=== PATIENT | male | born 2000 | race Caucasian/White ===

== ENCOUNTER 2022-09-08 16:35 | Emergency (ER) | payer OTHER, SELFPAY ==
[2022-09-08] VITALS (30 sets, daily range): BP systolic 97–122; BP diastolic 49–86; PULSE 104–160; RESP 12–21; TEMP 36.8–38.2; O2SAT 97–100
--- NOTE | 2022-09-08 17:16 | PC.NURSE ---
THIS RN CALLED [facility] TO VERIFY PT STATUS. PER MONICA RN, PT WAS TO BE IN THE ER FOR FURTHER EVALUATION, DR JOHN DOES NOT HAVE ADMITTING PRIVILEGES AT THIS FACILITY, AND HE DID NOT NOTIFY HOSPITALIST. STAFF IS TO FAX OVER LAB RESULTS. COVID AND FLU TESTS WERE RAPID TESTS, BOTH NEGATIVE. PT REPORTS HE STILL HAS NAUSEA, HOWEVER NO EMESIS POST MEDICATION. PT DENIES ANY PAIN OR DIARRHEA.
--- NOTE | 2022-09-08 17:16 | ED.GENADULT ---
HPI - General Adult General Chief complaint: Nausea/Vomiting/Diarrhea Stated complaint: vomitting Time Seen by Provider: 09/08/22 17:07 History of Present Illness HPI narrative: The patient is a 22-year-old male who has had symptoms of nausea and vomiting since 4:30 a.m. today. He has had approximately 8 episodes. No symptoms yesterday. He went to his primary care provider's office and had a systolic blood pressure in the 80s. He was referred to a clinic for IV hydration. He received 2 ODT Zofran tablets and 1 L of intravenous hydration. He was checked for COVID 19 and influenza both were negative. Blood was sent but is not available for review at present. He went back to his primary care provider's office. Blood pressure was 82/62 with a pulse in the 110-120s. He was referred here for further management. The patient still has nausea pre but no vomiting since receiving the Zofran ODT. No abdominal pain. No dizziness. No diarrhea. No URI symptoms. Related Data Home Medications Medication Instructions Recorded Confirmed loratadine 10 mg tablet (Claritin) 10 mg PO DAILY 09/08/22 09/08/22 montelukast 10 mg tablet 10 mg PO DAILY 09/08/22 09/08/22 (Singulair) Allergies Allergy/AdvReac Type Severity Reaction Status Date / Time No Known Allergies Allergy Verified 09/08/22 16:51 Review of Systems Review of Systems: All systems reviewed & are unremarkable except as noted in HPI and below Constitutional: Constitutional: Reports no additional constitutional complaints, Denies anorexia, Denies body ache(s), Denies chills, Denies excessive sweating, Denies fatigue, Denies fever(s), Denies frequent falls, Denies headache(s), Denies malaise and Denies poor appetite Eyes: Eyes: Reports no additional eye complaints, Denies blurry vision, Denies change in vision, Denies irritation, Denies itchy eyes and Denies photophobia ENT: Reports system reviewed and no additional complaints, except as documented, Reports Normal hearing present, Denies change in voice, Denies dysphagia, Denies vertigo, Denies dizziness, Denies ear discharge, Denies headache(s), Denies hearing loss, Denies hoarseness, Denies nasal congestion, Denies neck pain, Denies sinus pressure, Denies sore throat and Denies throat swelling Cardiovascular: Cardiovascular: Reports no additional cardiovascular complaints, Denies chest pain, Denies syncope, Denies rapid heart rate, Denies irregular heart rhythm, Denies leg edema, Denies dyspnea and Denies slow heart rate Respiratory: Respiratory: Reports no additional respiratory complaints, Denies cough, Denies dyspnea, Denies stridor and Denies wheezing Gastrointestinal: Gastrointestinal: Reports no additional gastrointestinal complaints, Denies abdominal pain, Denies melena, Denies hematochezia, Denies dysphagia, Denies diarrhea, Reports nausea and Reports vomiting Genitourinary: Genitourinary: Denies hematuria, Denies oliguria, Denies dysuria, Denies flank pain, Denies urinary frequency and Denies urinary urgency Musculoskeletal: Musculoskeletal: Reports no additional musculoskeletal complaints, Denies abnormal gait, Denies back pain, Denies myalgias, Denies arthralgias, Denies joint swelling, Denies limited range of motion, Denies muscle cramps, Denies muscle weakness, Denies neck pain and Denies numbness Integumentary/Breasts: Skin/Breast: Reports system reviewed and no additional complaints, except as docu, Denies breast pain, Denies change in pigmentation, Denies pruritus, Denies erythema and Denies wounds Neurologic: Reports system reviewed and no additional complaints, except as documented, Reports Normal hearing present, Denies Abnormal speech present, Denies abnormal gait, Denies confusion, Denies vertigo, Denies dizziness, Denies syncope, Denies frequent falls, Denies headache(s), Denies focal weakness, Denies numbness and Denies paresthesias Psychiatric: Psychiatric: Reports no additional psychiatric complaints and Denie
[2022-09-08 17:39] LABS: Basophils Absolute Auto 0.02 K/mm3 (0.00-0.10); Basophils Percent Auto 0.4 % (0.0-1.0); Eosinophils Absolute Auto 0.01 K/mm3 (0.02-0.50); Eosinophils Percent Auto 0.2 % (1.0-6.0); Hematocrit 44.4 % (40.0-54.0); Hemoglobin 14.8 g/dL (14.0-18.0); Immature Granulocyte Absolute 0.02 K/mm3 (0.00-0.00); Immature Granulocyte Percent A 0.4 % (0.0-0.0); Immature Platelet Fraction Pct 1.8 % (1.0-7.0); Lymphocytes Absolute Auto 0.16 K/mm3 (1.10-4.50); Lymphocytes Percent Auto 3.1 % (18.0-42.0); Mean Corpuscular HGB Conc 33.3 g/dL (32.0-36.0); Mean Corpuscular Hemoglobin 29.5 pg (27.0-31.0); Mean Corpuscular Volume 88.4 fL (78.0-102.0); Mean Platelet Volume 10.3 fl (8.7-11.0); Monocytes Absolute Auto 0.23 K/mm3 (0.10-0.90); Monocytes Percent Auto 4.5 % (2.0-11.0); Neutrophils Absolute Auto 4.7 K/mm3 (1.7-7.2); Neutrophils Percent Auto 91.4 % (50.0-70.0); Platelet Count Result 141 K/mm3 (150-420); Red Blood Count 5.02 M/mm3 (4.70-6.10); Red Cell Distribution Width 11.5 % (11.6-14.4); White Blood Count 5.2 K/mm3 (4.8-10.8)
[2022-09-08] MEDS: SODIUM CHLORIDE 0.9% IV 1,000 ML 999 ML IV CONT ×2 (17:50→18:59)
[2022-09-08] MEDS: ONDANSETRON INJ 4 MG/2 ML VIAL IV PUSH (17:50)
[2022-09-08] MEDS: KETOROLAC 30 MG/ML VIAL (*BKC) IV PUSH (17:51)
[2022-09-08] MEDS: METOCLOPRAMIDE HCL INJ 10 MG/2 ML VIAL IV PUSH (17:52)
[2022-09-08] MEDS: ACETAMINOPHEN 500 MG TABLET 1000 MG PO (17:52)
[2022-09-08 17:53] LABS: Alanine Aminotransferase 13 U/L (16-63); Albumin Level 3.6 g/dL (3.4-5.0); Alkaline Phosphatase 50 U/L (46-116); Amylase 39 U/L (25-115); Anion Gap 9 mmol/L (8-16); Aspartate Amino Transferase 11 U/L (15-37); Bilirubin,Total 1.2 mg/dL (0.00-1.00); Blood Urea Nitrogen 25 mg/dL (7-18); Calcium 8.2 mg/dL (8.5-10.1); Carbon Dioxide 26 mmol/L (21-32); Chloride 104 mmol/L (98-108); Estimated CRCL calculation 91 ml/min; Estimated Glomerular Filt Rate > 60; Glucose 106 mg/dL (70-99); Lipase 15 U/L (16-77); Magnesium 1.4 mg/dL (1.8-2.4); Osmolality Calculated 292 mOsm/kg (285-295); Potassium 3.9 mmol/L (3.5-5.1); Sodium 139 mmol/L (136-145); Total Protein 6.3 g/dL (6.4-8.2)
[2022-09-08 18:00] LABS: Lactic Acid Reflex 1.7 mmol/L (0.4-2.0)
--- NOTE | 2022-09-08 19:12 | PC.NURSE ---
1840- PT REPORTS HE FEELS MUCH BETTER, PT IS DIAPHORETIC, TEMP IS NOW 98.2F. PT NOTED TO CONTINUE TO BE TACHYCARDIC, WORSE UPON EXERTION. ORTHOSTATIC VS OBTAINED AND REPORTED TO ERP. NEW ORDERS TO BE PLACED. URINAL PROVIDED TO PT AT THIS TIME. WILL CONTINUE TO MONITOR. 1850- UPON OBTAINING ORTHOSTATIC VS, ERP IS NOTIFIED AND ADDITIONAL FLUIDS INITIATED. PT STATES HE IS FEELING MUCH BETTER AND IS HUNGRY. PER ERP, PT IS ABLE TO HAVE CLEAR LIQUIDS. JELLO TO BE PROVIDED. PT DENIES ANY PAIN, REPORTS NAUSEA IS GONE. WILL CONTINUE TO MONITOR. 1900- UPON STANDING TO URINATE, PT HR IS 170. ERP IS NOTIFIED, NO FURTHER ORDERS AT THIS TIME. MEDICATIONS TO BE GIVEN, IVF IS INFUSING WITHOUT DIFFICULTY. REPORT TO CODY MICHAEL AT THIS TIME. MOTHER HAS RETURNED TO BEDSIDE.
[2022-09-08] MEDS: CALCIUM GLUCONATE 1,000 MG/10 ML VIAL 2000 MG (19:21)
[2022-09-08] MEDS: CALCIUM GLUC 2,000 MG/NS 100ML 2,000 MG/100 ML BAG 100 MG IVPB (19:23)
[2022-09-08] MEDS: SODIUM CHLORIDE 0.9% IV 100 ML (19:24)
--- NOTE | 2022-09-08 19:30 | PC.NURSE ---
Pt resting c mom at bedside, POC expolained to pt and mom. Pt given CL diet at this time, pt states he is hungry and feeling better, ready to go home. IVF continue to infuse as ordered, IV meds mixed and hung as ordered.
[2022-09-08 20:01] LABS: Add Urine Microscopic? YES; Appearance Urine Clear (Clear); Bilirubin Urine Negative (Negative); Blood Urine Negative (Negative); Color Urine Yellow (Yellow); Glucose Urine UA Negative (Negative); Ketones Urine 1+ (Negative); Leukocyte Esterase Ur Negative LEU/UL (Negative); Nitrate Urine Negative (Negative); Protein Urine Negative (Negative)
[2022-09-08 20:08] LABS: Amphetamine Screen Urine Negative (Negative); Barbiturate Screen Urine Negative (Negative); Benzodiazepines Screen Urine Negative (Negative); Cannabinoid Screen Urine Negative (Negative); Cocaine Screen Urine Negative (Negative); Methadone Screen Urine Negative (Negative); Opiate Screen Urine Negative (Negative); Phencyclidine Screen Urine Negative (Negative)
[2022-09-08] MEDS: MAGNESIUM SULF 2 GM/WATER 50ML 2 GM/50 ML BAG IVPB (20:17)
[2022-09-08 20:22] LABS: RBC Urine 0-2 /hpf (0-2); Squamous Epithelial Cell Urine None seen /hpf (Few); WBC Urine 0-3 /hpf (0-3)
[2022-09-08 20:23] LABS: Bacteria Urine None seen /hpf; Mucus Urine Rare /lpf
== END 2022-09-08 20:47 | disposition home or self-care (01) ==
PROVIDERS: Emergency Provider Emergency Medicine
DX: K52.9 Noninfective gastroenteritis and colitis, unspecified (principal); R11.2 Nausea with vomiting, unspecified; E83.42 Hypomagnesemia; E83.51 Hypocalcemia
CPT/HCPCS: 36415; 80053; 80307; 81001; 82150; 83605; 83690; 83735; 85025; 85055; 87040; 96361; 96365; 96367; 96375; 99284; J0610; J1885; J2405; J2765; J3475; J7030